=== PATIENT | female | born 1945 | race Caucasian/White ===

== ENCOUNTER 2020-06-29 05:28 | Emergency (ER) | payer MEDICARE, OTHER ==
[2020-06-29 06:33] LABS: RED BLOOD COUNT 3.55 M/UL (4.00-5.10); WHITE BLOOD COUNT 6.7 K/UL (4.5-11.0)
[2020-06-29 06:55] LABS: BUN/CREATININE RATIO 14 (0-10)
== END 2020-06-29 08:11 | disposition home or self-care (01) ==
LOC: ER1 05:28
PROVIDERS: Student in an Organized Health Care Education/Training Program
DX: M19.012 Primary osteoarthritis, left shoulder (principal); M19.011 Primary osteoarthritis, right shoulder; Z85.00 Personal history of malignant neoplasm of unspecified digestive organ; Z79.899 Other long term (current) drug therapy
CPT/HCPCS: 71045; 80053; 82550; 82553; 83874; 84484; 85025; 93005; 99284